=== PATIENT | female | born 1960 | race Caucasian/White ===

== ENCOUNTER 2016-12-26 08:35 | Emergency (ER) | payer MEDICARE, OTHER ==
[~2016-12-26 08:35] MED LIST: ALLEGRA180 PO; AMITIZA8 MCG PO; ASAB PO; CELEBREX1 PO; CRESTOR20 MG PO; CRESTOR40 MG PO; CYMBALTA30 PO; DOLOPHINE10 MG PO; ESTRADIOL1 MG PO; GOODY POWDER PO; LIBRAX PO; METHATAB10 PO; MSCONTIN PO; MULTIPLE VIT PO; NEUR600 PO; OXYCONTIN15 MG PO; PRIN10 PO; PRIN20 PO; PROAIR HFA INH; ROXICODONE30 MG PO; V2 PO; ZANAFLEX 4 MG TA4 MG PO; [UNRECOGNIZED DRUG - OTHER] PO
== END 2016-12-26 10:52 | disposition home or self-care (01) ==
LOC: ER 08:35
DX: G43.909 Migraine, unspecified, not intractable, without status migrainosus (principal); R10.9 Unspecified abdominal pain; I10 Essential (primary) hypertension; D64.9 Anemia, unspecified; F17.200 Nicotine dependence, unspecified, uncomplicated; Z88.5 Allergy status to narcotic agent; Z79.82 Long term (current) use of aspirin; Z79.899 Other long term (current) drug therapy
CPT/HCPCS: 96372; 99284; A9270-GY; J1885; J2550